=== PATIENT | female | born 1990 | race Caucasian/White ===

== ENCOUNTER 2017-07-22 18:13 | Emergency (ER) | payer SELFPAY ==
[~2017-07-22] VITALS: Ht 144.8 cm; Wt 58.7 kg
--- NOTE | 2017-07-22 18:13 | NUR ---
Kelly rhodes in ED - 07/22/17 at 2138 by MEDRJJ PATIENT LEFT WITHOUT BEING SEEN BY DR. TOBAR. NO FURTHER CARE PROVIDED FOR PATIENT.
[2017-07-22 18:35] VITALS: BP 119/74
--- NOTE | 2017-07-22 20:20 | NUR ---
PATIENT LEFT WITHOUT BEING SEEN BY DR. TOBAR. NO FURTHER CARE PROVIDED FOR PATIENT.
== END 2017-07-22 20:20 | disposition left against medical advice (07) ==
LOC: MED 18:13
DX: H57.8 Other specified disorders of eye and adnexa (principal); Z53.21 Procedure and treatment not carried out due to patient leaving prior to being seen by health care provider